=== PATIENT | female | born 1995 | race Caucasian/White ===

== ENCOUNTER 2020-05-28 10:06 | Day surgery (SDC) | payer BC ==
[2020-05-28] VITALS (9 sets, daily range): BP systolic 125–145; BP diastolic 59–77
[~2020-05-28] VITALS: Ht 167.6 cm; Wt 74.8 kg
[~2020-05-28 10:06] MED LIST: VITAMIN D PO
[2020-05-28] MEDS ORDERED: LR 1000ml ONE (10:07)
[2020-05-28] MEDS ORDERED: Sterile Water Irrig 1000ml IRRIG ONE (10:07)
[2020-05-28] MEDS ORDERED: DEPO-TESTO100 MG/1 M IM (10:39)
[2020-05-28] MEDS ORDERED: Bacitracin Oint 15gm Tube TOPIC ONE (11:12)
[2020-05-28] MEDS ORDERED: Lidocaine 1%/ 10mg/ml/EPI 0.01mg/ml 20ml INJ ONE (11:13)
[2020-05-28] MEDS ORDERED: Bupivacaine 0.25% Inj 30ml INJ ONE (11:13)
[2020-05-28] MEDS ORDERED: Muri-Lube ONE (11:13)
[2020-05-28] MEDS ORDERED: Dyna-Hex 2% Top Sol 2oz TOPIC ONE (11:13)
[2020-05-28] MEDS ORDERED: fentaNYL 100 mcg/2 mL IV ONE ×2 (11:44→13:13)
[2020-05-28] MEDS ORDERED: Midazolam 2mg/2ml Inj ONE (11:44)
[2020-05-28] MEDS ORDERED: ceFAZolin sod 2 GM in NS 55 ML IVPB ONE (12:00)
--- NOTE | 2020-05-28 12:02 | Anethesia Preoperative Eval ---
Anesthesia Pre-op PMH/ROS General Date of Evaluation: May 28, 2020 Time of Evaluation: 11:59 Anesthesiologist: madyson ASA Score: ASA 1 Mallampati Score Class I : Soft palate, uvula, fauces, pillars visible Class II: Soft palate, uvula, fauces visible Class III: Soft palate, base of uvula visible Class IV: Only hard plate visible Mallampati Classification: Class II Surgeon: Darren Diagnosis: Gender Dyshoria Surgical Procedure: Bilateral Masectomy Anesthesia History: none Family History: no anesthesia problems Allergies: Coded Allergies: No Known Allergies (Unverified , 05/27/20) Medications: see eMAR Patient NPO?: Yes NPO Date: May 28, 2020 Past Medical History Cardiovascular: Denies: HTN, CAD, CT, valve dz, arrhythmia, other Pulmonary: Denies: asthma, COPD, FERMIN, other Gastrointestinal/Genitourinary: Denies: GERD, CRI, ESRD, other Neurologic/Psychiatric: Denies: dementia, CVA, depression/anxiety, TIA, other Endocrine: Denies: DM, hypothyroidism, steroids, other HEENT: Denies: cataract (L), cataract (R), glaucoma, LOWER ELWHA (L), LOWER ELWHA (R), other Hematology/Immune: Denies: anemia, DVT, bleeding disorder, other Musculoskeletal/Integumentary: Denies: OA, RA, DJD, DDD, edema, other PSxH Narrative: none Anesthesia Pre-op Phys. Exam Physician Exam Last Vital Signs Date Time Temp Pulse Resp B/P (MAP) Pulse Ox O2 Delivery O2 Flow Rate FiO2 05/28/20 10:33 Room Air 05/28/20 10:33 98.2 83 18 133/77 97 Constitutional: NAD Neurologic: CN 2-12 intact Cardiovascular: RRR Respiratory: CTA Gastrointestinal: S/NT/ND Airway Exam Mallampati Classification 2 Mallampati Score: Class II MO: full ROM: full Dentures: no upper, no lower Anesthesia Pre-op A/P Labs Urine Test Test 05/28/20 10:10 Urine HCG, Qualitative Negative (NEGATIVE) Studies Pre-op Studies: EKG - SR Risk Assessment & Plan Plan: general Status Change Before Surgery: No Pre-Antibiotics Drug: ancef Given Within 1 Hr of Incision: Yes Time Given: 12:40 Odalys Romo CRNA May 28, 2020 12:02
[2020-05-28] MEDS ORDERED: NS Irrig 1000ml IRRIG ONE ×2 (12:04→12:50)
[2020-05-28] MEDS ORDERED: fentaNYL 100 mcg/2 mL IV PRN (12:15)
[2020-05-28] MEDS ORDERED: Meperidine 25mg/1ml Inj (FOR RIGORS ONLY) IV PRN (12:15)
[2020-05-28] MEDS ORDERED: Hydromorphone 0.5mg/0.5ml inj IVP PRN (12:15)
[2020-05-28] MEDS ORDERED: DiphenhydrAMINE 50mg/ml Inj IVP PRN (12:15)
[2020-05-28] MEDS ORDERED: Metoclopramide 10mg/2ml Inj IVP PRN (12:15)
[2020-05-28] MEDS ORDERED: Acetaminophen (Non formulary) 100 ML IV ONE (12:45)
--- NOTE | 2020-05-28 12:47 | Pre-Procedure Note/Attestation ---
Pre-Procedure Note/Attestation Complete Prior to Procedure Planned Procedure: bilateral Procedure Narrative: bilateral mastectomy and nipple areola reconstruction Indications for Procedure Pre-Operative Diagnosis: gender dysphoria Attestation I attest that I discussed the nature of the procedure; its benefits; risks and complications; and alternatives (and the risks and benefits of such a lternatives), prior to the procedure, with the patient (or the patient's legal quality assurance representative). I attest that, if there was a reasonable possibility of needing a blood transfusion, the patient (or the patient's legal quality assurance representative) was given the [facility] standardized written summary, pursuant to the Aleksey Solitario Blood Safety Act ([place] Health and Safety Code # 1645, as amended). I attest that I re-evaluated the patient just prior to the surgery and that there has been no change in the patient's H&P, except as documented below: Tito Banks MD May 28, 2020 12:46
[2020-05-28] MEDS ORDERED: Morphine Sulfate 10mg/ml Inj ONE ×2 (12:54→14:22)
[2020-05-28] MEDS ORDERED: Metoclopramide 10mg/2ml Inj ONE (13:00)
[2020-05-28] MEDS ORDERED: Lidocaine 1% MPF 10mg/ml 5ml ONE (13:00)
--- NOTE | 2020-05-28 15:57 | Operative Note - PDOC ---
Operative Note Operative Note Date of Operation/Procedure: May 28, 2020 Pre-op Diagnosis: gender dysphoria Procedure: bilateral mastectomy and nipple areola reconstruction Post-op Diagnosis: same as pre-op Surgeon: Darren Anesthesia: general Specimen: yes Complications: none Condition: stable Estimated Blood Loss: minimal Drains: FRANK Implant(s) used?: No Tito Banks MD May 28, 2020 15:57
--- NOTE | 2020-05-28 15:58 | Discharge Instructions ---
Discharge Instructions Discharge Instructions Follow up with: Dr. Banks 06/03/20 Diet: regular Resume Normal Activity?: Yes Activity: ambulate Special Instructions no lifting anything heavier than 10 lbs; avoid using arms and upper body as much as possible For Surgical Patients Dressing Care: keep dry and clean May shower: No - sponge bathe only For Congestive Heart Failure Reminder Report to your physician any weight gain of 5 pounds or more in one week. Tito Banks MD May 28, 2020 15:58
[2020-05-28] MEDS ORDERED: HYDROmorphone 1mg/ml Carpuject SUBQ PRN (16:00)
[2020-05-28] MEDS ORDERED: HYDROcodone/Acetamin 5/325 tab ORAL PRN (16:00)
[2020-05-28] MEDS ORDERED: Tylenol #3 tab (300mg/30mg) ORAL PRN (16:00)
--- NOTE | 2020-05-28 16:18 | Immediate Post-Op Evaluation ---
Immediate Post-Op Evalulation Immediate Post-Op Evalulation Procedure: Bilateral breast masectomy Date of Evaluation: May 28, 2020 Time of Evaluation: 16:10 IV Fluids: 1200 Blood Products: 0 Estimated Blood Loss: 20 Urinary Output: 100 Blood Pressure Systolic: 125 Blood Pressure Diastolic: 67 Pulse Rate: 70 Respiratory Rate: 14 O2 Sat by Pulse Oximetry: 98 Temperature (Fahrenheit): 97.5 Nausea: No Vomiting: No Patient Status: awake, reacts, patent Hydration Status: adequate Drug: ancef Given Within 1 Hr of Incision: Yes Time Given: 12:40 Odalys Romo CRNA May 28, 2020 16:18
--- NOTE | 2020-05-28 16:28 | 48 Hour Post Anesthesia Eval ---
Post Anesthesia Evaluation Procedure: Bilateral breast masectomy Date of Evaluation: May 28, 2020 Time of Evaluation: 16:28 Blood Pressure Systolic: 144 0: 66 Pulse Rate: 70 Respiratory Rate: 14 O2 Sat by Pulse Oximetry: 98 Airway: patent Nausea: No Vomiting: No Hydration Status: adequate Cardiopulmonary Status: stable Mental Status/LOC: patient returned to baseline Post-Anesthesia Complications: none Follow-up care needed: N/A Odalys Romo CRNA May 28, 2020 16:28
[2020-05-28] MEDS ORDERED: Ketorolac 30mg Inj IV PRN (16:30)
--- NOTE | 2020-05-28 17:30 | Operative Note - Dictated ---
DATE OF OPERATION: 05/28/2020 PREOPERATIVE DIAGNOSIS: Gender dysphoria. POSTOPERATIVE DIAGNOSIS: Gender dysphoria. PROCEDURE: 1. Bilateral mastectomy. 2. Bilateral nipple areolar reconstruction utilizing full-thickness nipple areola graft (each graft 2.5 x 2.5 cm). SURGEON: Tito Banks MD. ANESTHESIA: General. ESTIMATED BLOOD LOSS: Minimal. SPECIMENS: 1. Right breast. 2. Left breast. DRAINS: A 15-Estonian Luan x2. COMPLICATIONS: None. CONDITION: Condition to recovery room is stable. INDICATION FOR PROCEDURE: This is a very pleasant 25-year-old trans male who desires top surgery as part of his transition. He has the appropriate letter for recommendation from his mental health therapist and meets all WPATH criteria for top surgery. I have discussed the risks, benefits, and alternatives to the procedure with him including, but not limited to, bleeding, infection, scarring, nerve injury, asymmetry, contour deformity, hematoma, seroma, loss of nipple sensation, loss of nipple graft and need for additional surgery including revisions. I discussed the orientation of the incisions and the unpredictable nature of scarring. No guarantees were made regarding the outcome. All of his questions have been answered to the best of my ability. He verbalized understanding with everything that we discussed and wishes to proceed. DESCRIPTION OF PROCEDURE: The patient was identified in the preoperative holding area and marked in the standing position. He was then brought to the operating room where he was placed in the supine position on the operating room table with his arms extended on arm boards. All bony prominences were adequately padded. Sequential compression devices were placed and intravenous antibiotics were administered. After induction of anesthesia, the patient's chest was prepped and draped in sterile fashion. Starting on the left breast first, a no[place]vik measuring 2.5 centimeters in diameter was drawn centered around the nipple. Next, the subdermal plane within the marking was infiltrated with 3 mL of 1% lidocaine with epinephrine. I then used a 15 blade scalpel to incise the areolar marking and proceeded to harvest a full-thickness nipple areola graft. The graft was subsequently defatted using curved iris scissors, wrapped in wet gauze and placed on the back table. I then made the inframammary fold incision using a 10 blade scalpel. Dissection proceeded down to the level of the pectoralis major fascia. I then made the superior breast incision using a 10 blade scalpel and dissected down to the level of Rodolfo's fascia. Skin Rakes were used to retract the skin and a plane of dissection was created superiorly between the subcutaneous tissues and breast parenchyma. The breast was then elevated off of the pectoralis major fascia proceeding from a medial to lateral direction. The specimen was then passed off the table. Hemostasis was achieved and the wound was irrigated with saline. 10 mL of FloSeal was then placed throughout the wound cavity. A 15-Estonian Luan drain was then placed within the wound and brought out through a separate stab incision and secured using 2-0 silk suture. Skin fito were then used to temporarily reapproximate the skin. I shifted my attention to the contralateral side of the chest where the identical procedure was performed. The patient was then sat up on the operating room table and it appeared that he had very reasonable symmetry between the two sides of his chest. I then used a marking pen to draw out the proposed location of the new nipple areola complex on each side of the chest. He was then placed back in the supine position. On each side of the chest, the skin fito were removed and wound closure was performed using interrupted 0 Vicryl suture for the Rodolfo's fascia layer followed by interrupted 3-0 PDS suture for the deep dermal layer and a running 3-0 Monocryl subcuticular suture to reapproximate the skin. At this point, I resumed with the nipple areola reconstruction portion of the procedure. Starting on the left chest first, the lee areolar marking was incised using a 15 blade scalpel. The intervening skin was then de-epithelialized. I then brought out the full-thickness nipple areola graft and proceeded to inset it into the de-epithelialized area using a running 5-0 fast-absorbing suture. Several 2-0 silk suture ties were then placed around the periphery of the graft. The skin graft bolster was then fashioned and secured into place directly on top of the graft using a 2-0 silk suture ties. I shifted my attention to the contralateral side of the chest where the identical procedure was performed. Afterwards, 10 mL of 0.25% plain Marcaine were injected into the each of the incisions. Steri-Strips were placed directly on top of the surgical incisions followed by sterile dressings. The patient was then placed into a compressive chest wrap. He tolerated the procedure well and was sent to the recovery room in stable condition. All instrument, sharp, and sponge counts were correct at the conclusion of the case. Tito Banks M.D. DR: MARY ANN JOB#: [id number] CC: KANCHAN
[2020-05-28] MEDS ORDERED: D5 1/2NS 1,000 ML IV SCH (20:00)
== END 2020-05-28 13:55 | disposition other institution (70) ==
LOC: SUR 10:06
DX: F64.9 Gender identity disorder, unspecified (principal)
CPT/HCPCS: 19303; 19350; 81025; 94003; J0131; J0690; J2250; J2270; J2405; J2704; J2765; J3010; J3490; J7120; U0002; 94150